=== PATIENT | female | born 1955 | race Caucasian/White ===

== ENCOUNTER 2016-07-13 05:51 | Observation (INO) ==
--- NOTE | 2016-07-13 06:07 | Emergency Department Note ---
Disposition Clinical Impression: COPD exacerbation, Weakness generalized Disposition: Admitted As Inpatient Condition: Good Referrals: Jose Elias Zazueta DO [Primary Care Provider] - Forms: Work/School Release, ED Satisfaction Letter General Adult HPI - General Chief complaint: ED General Medical Stated complaint: general illness Time Seen by Provider: 07/13/16 06:02 Source: patient, family, EMS Mode of arrival: EMS Limitations: no limitations Nursing Notes Reviewed: Yes Vital Signs Reviewed: Yes - History of Present Illness HPI Narrative: Patient reports that she has progressive weakness. She said some nausea with decreased oral intake over the course of about 2 weeks. She states she has held down just a little bit of Gatorade and water. She also has been having increased wheezing, cough and dyspnea. She is yellow to green phlegm without much improvement with her home aerosols. She also notes her has had a recent abdominal infection with colostomy and she has been feeling that she is having difficulty with some depression and stress. She got today to where she felt too weak to stand or walk and felt that she needed evaluated for her breathing, her weakness and dehydration. She denies fevers or chills. She denies abdominal pain or any actual vomiting other than some gagging with coughing. I ordered bloody or black stools. She relates that her urine has been decreased with her decreased oral intake. She feels dyspneic but denies chest pain. She is not having headache, visual changes or any localized numbness, tingling or weakness. She denies any type of fall or injury. Onset (ago): week(s) Consistency: Worsening Improves with: nothing Worsens with: movement Associated symptoms: Reports: cough, loss of appetite, malaise, nausea/vomiting , shortness of breath, weakness. Denies: confusion, chest pain, diaphoresis, fever/chills, headaches, rash, seizure, syncope - Related Data Home Medications Medication Instructions Recorded Confirmed HYDROcodone/Acet 10/325 mg [[place] 1 tab PO Q6HR PRN 07/13/16 07/13/16 10-325 mg] Triamterene/Hydrochlorothiazid 1 each PO DAILY 07/13/16 07/13/16 [Dyazide 37.5-25 Capsule] Allergies Allergy/AdvReac Type Severity Reaction Status Date / Time acetaminophen [From Percocet] Allergy Hives Verified 07/13/16 06:16 meloxicam [From Mobic] Allergy Hives Verified 07/13/16 06:16 Oxycodone [From Percocet] Allergy Hives Verified 07/13/16 06:16 All systems ED: reviewed and negative except as stated. Past Medical History - Past Medical History Attestation: Yes The following information was validated with the patient. Source: patient, nursing notes reviewed Medical history: Reports: asthma, hyperlipidemia, hypertension, other (Chronic low back pain, morbid obesity) Surgical history: Reports: orthopedic, other (Knee, rotator cuff) - Social History Smoking Status: Current every day smoker Alcohol use: Reports: none Drug use: Reports: none Physical Exam - General Limitations: no limitations General appearance: alert, anxious - Head Head exam: atraumatic, normocephalic, normal inspection - Eye Eye exam: Present: normal appearance, PERRL, EOMI. Absent: scleral icterus, conjunctival injection - ENT ENT exam: normal exam, normal oropharynx, mucous membranes moist - Neck Neck exam: Present: normal inspection, full ROM, trachea midline. Absent: tenderness, meningismus, lymphadenopathy - Chest Chest inspection: Present: normal inspection, symmetric chest wall rise - Respiratory Respiratory exam: Present: wheezes, prolonged expiratory phase. Absent: respiratory distress, accessory muscle use - Cardiovascular Cardiovascular exam: Present: regular rate, normal rhythm, tachycardia, normal heart sounds - Abdominal Exam Abdominal exam: Present: soft, Non-Tender, normal bowel sounds. Absent: tenderness, distention, guarding, rebound, rigidity - Extremities Exam Extremities exam: Present: normal inspection, full ROM, normal capillary refill. Absent: tenderness, pedal edema, calf tenderness - Expanded Lower Extremity Exam Neurovascular/Tendon exam: Present: normal capillary refill. Absent: motor deficit, sensory deficit, tendon deficit Gait: not tested/not observed - Back Exam Back exam: Present: normal inspection, full ROM. Absent: tenderness, CVA tenderness (R), CVA tenderness (L), vertebral tenderness - Neurological Exam Neurological exam: Present: alert, oriented X3 - Psychiatric Psychiatric exam: Present: normal affect, anxious - Skin Skin exam: Present: warm, dry, intact, normal color. Absent: cyanosis, diaphoresis, pallor Course Course Narrative: 729: All lab, EKG and imaging results were discussed with the patient and her brother. She states she still does not feel that she can produce a urine. She relates that she feels that she is too weak to get up around her house even with her walker or wheelchair. I have contacted Dr. Mantilla who is agreeable to have her in for an observation status to reassess how she responds to longer treatment. Verbal orders have been obtained for her observation. Patient remains in stable condition. Vital Signs Temperature 97.7 F 07/13/16 05:58 Pulse Rate 100 07/13/16 05:58 Respiratory Rate 20 07/13/16 05:58 Blood Pressure 130/83 07/13/16 05:58 O2 Sat by Pulse Oximetry 96 07/13/16 05:58 Temperature 97.7 F 07/13/16 05:58 Pulse Rate 100 07/13/16 05:58 Respiratory Rate 16 07/13/16 06:36 Blood Pressure 130/83 07/13/16 05:58 O2 Sat by Pulse Oximetry 95 07/13/16 06:36 Oxygen Delivery Oxygen Delivery Room Air Medical Decision Making - Medical Records Medical records reviewed: Yes I reviewed the patient's medical records. - Lab Data Lab results reviewed: Yes I reviewed the patient's lab results. Result diagrams: 07/13/16 06:35 07/13/16 06:35 Lab Results 07/13/16 07/13/16 07/13/16 Range/Units 06:35 06:35 06:35 WBC 4.8 (4.3-11.1) K/mcL RBC 3.67 L (3.82-4.97) M/mcL Hgb 13.9 (11.5-15.4) g/dL Hct 39.0 (35.3-44.9) % MCV 106.3 H (83.0-100.0) fL MCH 37.9 H (28.0-33.3) pg MCHC 35.6 H (31.6-35.5) g/dL RDW 11.0 L (11.5-14.5) % Plt Count 130 L (140-400) K/mcL MPV 9.7 (9.4-12.4) fL Immature Gran % 0.4 (0-4) % Seg Neutrophils % 67.6 % Lymphocytes % 21.5 % Monocytes % 9.9 % Eosinophils % 0.2 % Basophils % 0.4 % Neutrophils # 3.3 (1.6-8.9) K/mcL Lymphocytes # 1.0 (0.6-4.6) K/mcL Monocytes # 0.5 (0.0-1.3) K/mcL Eosinophils # 0.0 (0.0-0.6) K/mcL Basophils # 0.0 (0.0-0.2) K/mcL PT (9.4-12.1) Seconds INR APTT (26.0-36.0) Seconds VBG Lactic Acid (0.5-2.2) mmol/L Sodium 130 L (136-145) mEq/L Potassium 4.6 H (3.5-4.5) mEq/L Chloride 82 L (98-109) mEq/L Carbon Dioxide 25 (19-29) mEq/L BUN 15 (7-20) mg/dL Creatinine 0.90 (0.57-1.11) mg/dL Est GFR ( Amer) > 60 (> 60) Est GFR (Non-Af Amer) > 60 (> 60) BUN/Creatinine Ratio 17 (6-26) Glucose 86 (70-99) mg/dL Calculated Osmolality 270 L (280-300) Calcium 10.1 (8.6-10.8) mg/dL Total Bilirubin 1.2 (0.2-1.2) mg/dL Direct Bilirubin 0.8 H (0.0-0.5) mg/dL Indirect Bilirubin 0.4 (0.0-1.2) mg/dL AST 55 H (5-34) Units/L ALT 24 (0-55) Units/L Alkaline Phosphatase 106 (38-126) Units/L Troponin I 0.01 (0-0.03) ng/mL Serum Total Protein 7.3 (6.0-8.3) g/dL Albumin 3.7 (3.5-5.0) g/dL Globulin 3.6 H (2.4-3.5) g/dL Albumin/Globulin Ratio 1.0 L (1.1-2.2) 07/13/16 07/13/16 Range/Units 06:35 06:35 WBC (4.3-11.1) K/mcL RBC (3.82-4.97) M/mcL Hgb (11.5-15.4) g/dL Hct (35.3-44.9) % MCV (83.0-100.0) fL MCH (28.0-33.3) pg MCHC (31.6-35.5) g/dL RDW (11.5-14.5) % Plt Count (140-400) K/mcL MPV (9.4-12.4) fL Immature Gran % (0-4) % Seg Neutrophils % % Lymphocytes % % Monocytes % % Eosinophils % % Basophils % % Neutrophils # (1.6-8.9) K/mcL Lymphocytes # (0.6-4.6) K/mcL Monocytes # (0.0-1.3) K/mcL Eosinophils # (0.0-0.6) K/mcL Basophils # (0.0-0.2) K/mcL PT 11.4 (9.4-12.1) Seconds INR 1.1 APTT 30.1 (26.0-36.0) Seconds VBG Lactic Acid 1.3 (0.5-2.2) mmol/L Sodium (136-145) mEq/L Potassium (3.5-4.5) mEq/L Chloride (98-109) mEq/L Carbon Dioxide (19-29) mEq/L BUN (7-20) mg/dL Creatinine (0.57-1.11) mg/dL Est GFR ( Amer) (> 60) Est GFR (Non-Af Amer) (> 60) BUN/Creatinine Ratio (6-26) Glucose (70-99) mg/dL Calculated Osmolality (280-300) Calcium (8.6-10.8) mg/dL Total Bilirubin (0.2-1.2) mg/dL Direct Bilirubin (0.0-0.5) mg/dL Indirect Bilirubin (0.0-1.2) mg/dL AST (5-34) Units/L ALT (0-55) Units/L Alkaline Phosphatase (38-126) Units/L Troponin I (0-0.03) ng/mL Serum Total Protein (6.0-8.3) g/dL Albumin (3.5-5.0) g/dL Globulin (2.4-3.5) g/dL Albumin/Globulin Ratio (1.1-2.2) - Radiology Data Radiology results reviewed: Yes I reviewed the patient's radiology results. Single view chest x-ray is performed. This does not demonstrate evidence for infiltrate, effusion, pneumothorax, foreign body or heart failure. The cardiac silhouette is normal. There is mild hyperexpansion consistent with COPD. I do not see abnormality to the osseous structures of the chest. This is on my interpretation. Impressions Chest X-Ray 07/13/16 06:13 IMPRESSION: Negative portable chest. D/ / Luis Dominguez MD / Luis Dominguez MD Interpreting Provider: Luis Dominguez MD
[2016-07-13] MEDS ORDERED: 0.9 % Sodium Chloride 1,000 ML IVC ONE (06:14)
[2016-07-13] MEDS ORDERED: Ipratropium/Albuterol Neb 3 ML IH ONE (06:14)
[2016-07-13] MEDS ORDERED: Levofloxacin 750 MG/150 ML 750 MG/150 ML BAG IVPB ONE (06:14)
[2016-07-13 06:55] LABS: Basophils % 0.4 %; Eosinophils % 0.2 %; Hemoglobin 13.9 g/dL (11.5-15.4); Immature Granulocytes % 0.4 % (0-4); Lymphocytes % 21.5 %; Mean Corpuscular HGB Conc 35.6 g/dL (31.6-35.5); Mean Corpuscular Hemoglobin 37.9 pg (28.0-33.3); Mean Corpuscular Volume 106.3 fL (83.0-100.0); Mean Platelet Volume 9.7 fL (9.4-12.4); Monocytes # 0.5 K/mcL (0.0-1.3); Monocytes % 9.9 %; Neutrophils # 3.3 K/mcL (1.6-8.9); Platelet Count 130 K/mcL (140-400); Red Blood Count 3.67 M/mcL (3.82-4.97); Segmented Neutrophils % 67.6 %
[2016-07-13 07:05] LABS: INR 1.1; Prothrombin Time 11.4 Seconds (9.4-12.1)
[2016-07-13 07:08] LABS: Activated Partial Thrombo Time 30.1 Seconds (26.0-36.0)
[2016-07-13 07:16] LABS: Alanine Aminotransferase 24 Units/L (0-55); Albumin 3.7 g/dL (3.5-5.0); Alkaline Phosphatase 106 Units/L (38-126); Aspartate Amino Transferase 55 Units/L (5-34); BUN/Creatinine Ratio 17 (6-26); Bilirubin,Direct 0.8 mg/dL (0.0-0.5); Bilirubin,Indirect 0.4 mg/dL (0.0-1.2); Bilirubin,Total 1.2 mg/dL (0.2-1.2); Blood Urea Nitrogen 15 mg/dL (7-20); Calcium 10.1 mg/dL (8.6-10.8); Carbon Dioxide 25 mEq/L (19-29); Chloride 82 mEq/L (98-109); Globulin 3.6 g/dL (2.4-3.5); Glucose 86 mg/dL (70-99); Osmolality,Calculated 270 (280-300); Potassium 4.6 mEq/L (3.5-4.5); Sodium 130 mEq/L (136-145); Total Protein 7.3 g/dL (6.0-8.3); eGFR For African Americans > 60 (> 60); eGFR For Non-African Americans > 60 (> 60)
[2016-07-13 08:20] LABS: Bilirubin,Urine Moderate (Negative); Blood,Urine Moderate (Negative); Clarity,Urine Slightly Cloudy (Clear); Color,Urine Dark Yellow (Yellow); Glucose,Urine (UA) Normal (Normal); Ketones,Urine >=160 mg/dL (Negative); Leukocyte Esterase,Urine Small (Negative); Nitrite,Urine Negative (Negative); PH,Urine 5.5 pH Units (5.0-8.0); Protein,Urine Trace mg/dL (Neg-Trace); Urobilinogen,Urine Normal (Normal)
[2016-07-13] MEDS ORDERED: MOM Conc 10 ML UD.LIQ PO PRN (09:11)
[2016-07-13] MEDS ORDERED: Acetaminophen 325 MG TABLET PO PRN (09:11)
[2016-07-13] MEDS ORDERED: MethylPREDNISolone 40 MG/ML VIAL IVP SCH ×2 (09:11→16:00)
[2016-07-13] MEDS ORDERED: Naloxone 0.4 MG/ML INJ IVP PRN (09:11)
[2016-07-13] MEDS ORDERED: 0.9 % Sodium Chloride 1,000 ML IVC SCH (09:11)
[2016-07-13] MEDS ORDERED: Ondansetron 4 MG/2 ML VIAL IVP PRN (09:11)
[2016-07-13 09:43] LABS: Amorphous Sediment,Urine Few (Few); Bacteria,Urine Few per hpf (None-Few); Granular Casts,Urine Many per lpf (None Seen); Mucus,Urine Few (Few); Squamous Epithelial Cell,Urine Moderate per lpf (None-Few); Transitional Epi Cells,Urine Few per hpf (None-Few)
[2016-07-13] MEDS: *HR* HYDROcodone/Acet 10/325 mg TABLET PO PRN ×3 (10:34→18:44)
[2016-07-13] MEDS: Ipratropium/Albuterol Neb 3 ML IH SCH ×2 (12:40→17:06)
--- NOTE | 2016-07-13 16:23 | Electrocardiograph Report ---
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
--- NOTE | 2016-07-13 16:32 | Internal Med History&Physical ---
Date of Encounter: 07/13/16 Time of Encounter: 15:50 Assessment and Plan (1) Weakness generalized Current visit: Yes Status: Acute Will check TSH, magnesium level, and PT and OT evaluations for assessment of gait, balance, and strength (2) Macrocytosis Current visit: Yes Status: Acute Will order B12, folate, and TSH levels. (3) Paresthesia of foot, bilateral Current visit: Yes Status: Acute We will order labs as above. (4) Neuroforaminal stenosis of lumbar spine Current visit: Yes Status: Acute Continue Neurontin and [place] for pain control. Internal Medicine - H&P: HPI Chief complaint: Confusion and progressive weakness Admitted From: Home Plans for Post Hospital Care: Home History of present illness: Ms. Osullivan is a 60 year old female who came to emergency room after she awakened approximately 0330 and felt confused. She denies significant pain other than a headache that has been present for one week. She called the autocad's office and a squad brought her to emergency room. She was evaluated with minimal abnormality seen on lab work. She was admitted to [facility] for further evaluation and ongoing care needs. She states she has had progressive weakness over the past 2-3 years with more noticeable decline in the past week with decreased ability to stand and walk. She has had evaluation including LS spine MRI 03/27/2013 which showed multilevel degenerative changes with mild to moderate neural foraminal narrowing at various levels. An MRI of the cervical spine 01/06/2010 showed moderate to severe spondylosis at C5-6 and C6-7 with mild multilevel foraminal narrowing. There was no critical central spinal canal narrowing. She reports having EMG and nerve conduction studies done approximately 2 years ago without significant pathology seen. She has not seen a neurologist or diet aid. She has had multiple injections into her spine by pain management physicians. She has a diagnosis of scoliosis. She denies gout. She has had right rotator cuff injury with surgical repair several years ago. Past Med Surg Social Fam HX - Past Medical History Medical history: asthma, hyperlipidemia, hypertension, other Psychiatric history: no psych history - Past Surgical History Surgical History: orthopedic, other - Social History Smoking Status: Current every day smoker Smokeless Tobacco Status: No Alcohol use: none Drug use: none Internal Medicine - H&P: Meds Albuterol Sulfate [Ventolin Hfa] 18 gm IH PRN PRN 07/13/16 [History] Cholecalciferol (Vitamin D3) [Vitamin D] 2,000 unit PO DAILY 07/13/16 [History] Fluticasone/Salmeterol [Advair 500-50 Diskus] 1 each IH BID 07/13/16 [History] Gabapentin [Neurontin] 900 mg PO TID 07/13/16 [History] HYDROcodone/Acet 10/325 mg [[place] 10-325 mg] 1 tab PO Q6HR PRN 07/13/16 [History ] Ipratropium/Albuterol Neb [Duoneb] 3 ml IH BID PRN 07/13/16 [History] Metoprolol [Lopressor] 12.5 mg PO DAILY 07/13/16 [History] Triamterene/Hydrochlorothiazid [Dyazide 37.5-25 Capsule] 1 each PO DAILY [History] Allergies acetaminophen [From Percocet] Allergy (Verified 07/13/16 06:16) Hives meloxicam [From Mobic] Allergy (Verified 07/13/16 06:16) Hives Oxycodone [From Percocet] Allergy (Verified 07/13/16 06:16) Hives All Systems PM: A 10-system review of systems was performed and is negative for pertinent findings except as documented above in the HPI. Review of systems: Gen.: She states her weight has been stable the past 2 months Cardiovascular: She has a history of hypertension and has had leg edema in the past without specific diagnosis of heart failure. Denies NE DVT or pulmonary embolus. Respiratory: She has smoked since age 18 approximately 37 years up to 2 packs per day. She has a diagnosis of asthma but denies COPD and does not wear home oxygen. GI: She denies disorders of her liver gallbladder or exocrine pancreas : She has had hematuria in the past but has not had workup done. She denies other kidney or bladder disorders Neurologic: She denies large distribution strokes or seizures. She complains of numbness in her feet and legs. Endocrine: She has diabetes or known thyroid disease but does have hyperlipidemia with significantly elevated HDL levels. She admits to drinking bourbon on a daily basis in past years but states she has cut down dramatically now. Hematology/oncology: She denies blood disorders cancers or anemia Psychiatric: She denies anxiety depression or other mental health issues Musk skeletal: As per history of present illness - Constitutional Vitals: Temp Pulse Resp BP Pulse Ox 97.5 F L 86 16 124/83 96 07/13/16 08:53 07/13/16 08:53 07/13/16 12:44 07/13/16 08:53 07/13/16 12:44 Exam: Gen.: She is a well-developed obese female who is lying in bed and appears in minimal distress at present time. HEENT: Head is atraumatic and normocephalic. Eyes: EOMI. There is no scleral icterus. Mouth: Mucosa is moist. Neck: Supple and nontender. There is no thyromegaly or adenopathy noted. Heart: Regular without murmurs gallops or ectopics. Lungs: She has diminished breath sounds diffusely. No wheezes or crackles are heard. Abdomen: She has a large abdomen. It is nontender to palpation. Extremities: There is no cyanosis edema or clubbing noted. Dorsalis pedis and posterior tibial pulses are trace palpable bilaterally. Neurologic: Mental status: She is talkative and a good historian. Cranial nerves: Smile is symmetric. Forehead wrinkles bilaterally. Tongue protrudes midline. EOMI. Motor: There is no pronator drift. She could not elevate her right arm because of previous rotator cuff injury. Cerebellar: Finger to nose is intact bilaterally. Skin: Warm and dry. She has telangiectasias of her malar areas bilaterally more on the left than the right. Internal Med - H&P Results - Labs CBC & Chem 7: 07/13/16 06:35 07/13/16 06:35 Labs: Urine 07/13/16 Range/Units 08:10 Urine Color Dark Yellow (Yellow) Urine Clarity Slightly Cloudy A (Clear) Urine pH 5.5 (5.0-8.0) pH Units Ur Specific [place] 1.020 (1.010-1.025) Urine Protein Trace (Neg-Trace) mg/dL Urine Glucose (UA) Normal (Normal) mg/dL
[2016-07-13] MEDS: Albuterol 2.5 MG/3 ML NEBULIZER IH PRN (18:14)
[2016-07-14] MEDS: *HR* HYDROcodone/Acet 10/325 mg TABLET PO PRN ×5 (00:05→21:05)
[2016-07-14] MEDS: Albuterol 2.5 MG/3 ML NEBULIZER IH PRN ×2 (00:51→22:18)
[2016-07-14 05:44] LABS: Hemoglobin 12.3 g/dL (11.5-15.4); Lymphocytes # 0.6 K/mcL (0.6-4.6); Lymphocytes % 13.5 %; Mean Corpuscular HGB Conc 35.1 g/dL (31.6-35.5); Mean Platelet Volume 10.1 fL (9.4-12.4); Monocytes # 0.2 K/mcL (0.0-1.3); Monocytes % 3.7 %; Platelet Count 101 K/mcL (140-400); Red Blood Count 3.24 M/mcL (3.82-4.97); Segmented Neutrophils % 81.8 %
[2016-07-14] MEDS ORDERED: Levofloxacin 750 MG/150 ML 750 MG/150 ML BAG IVPB SCH (06:00)
[2016-07-14 06:06] LABS: Neutrophils # 3.4 K/mcL (1.6-8.9)
[2016-07-14 06:24] LABS: Thyroid Stimulating Hormone 0.412 mcIU/mL (0.350-4.840)
--- NOTE | 2016-07-14 13:59 | Internal Med Progress Note ---
Date of Encounter: 07/14/16 Time of Encounter: 13:50 - Assessment and plan (1) Weakness generalized Current Visit: Yes Status: Acute Assessment and plan: July 14. Await PT evaluation. Anticipate discharge home tomorrow. (2) Macrocytosis Current Visit: Yes Status: Acute Assessment and plan: July 14. B12 and folate levels are pending. TSH was normal at 0.412. (3) Paresthesia of foot, bilateral Current Visit: Yes Status: Acute Assessment and plan: July 14. B12 level is pending. (4) Neuroforaminal stenosis of lumbar spine Current Visit: Yes Status: Acute Assessment and plan: July 14. Continue Neurontin and [place] (5) Hyperuricemia Current Visit: Yes Status: Acute Assessment and plan: July 14. We will start allopurinol - Subjective Interval history: July 14. She has no new complaints and feels better. He has not had PT evaluation yet. Reviewed the OT evaluation. - Constitutional Vitals: Temp Pulse Resp BP Pulse Ox 98.1 F 96 18 112/78 96 07/14/16 11:20 07/14/16 11:20 07/14/16 11:20 07/14/16 11:20 07/14/16 11:20 Exam: She is resting comfortably in bed and appears in no acute distress. Her affect is bright and cheerful. I reviewed her CT scan reports, labs, and medications. Room air oximetry showed saturation 96% at rest. Internal Medicine: Result - Labs CBC & Chem 7: 07/14/16 04:37 07/13/16 06:35 Labs: Short CBC 07/14/16 Range/Units 04:37 WBC 4.1 L (4.3-11.1) K/mcL Hgb 12.3 D (11.5-15.4) g/dL Hct 35.0 L (35.3-44.9) % Plt Count 101 L (140-400) K/mcL Neutrophils # 3.4 (1.6-8.9) K/mcL - ABG Interpretation ABG results: PT/INR, D-dimer PT 11.4 Seconds (9.4-12.1) 07/13/16 06:35 - Impressions Impressions Abdomen/Pelvis CT 07/13/16 16:44 IMPRESSION: 1. No acute intra-abdominal or intrapelvic process. 2. Cholelithiasis. 3. Colonic diverticulosis without evidence of diverticulitis. 4. Normal appendix. D/ / Wilton Crump MD / Wilton Crump MD Interpreting Provider: Wilton Crump MD Chest CT 07/13/16 16:44 IMPRESSION: No evidence of pulmonary malignancy or acute pulmonary disease. Coronary artery disease. D/ / Solo Gonzalez MD / Solo Gonzalez MD Interpreting Provider: Solo Gonzalez MD Head CT 07/13/16 16:44 IMPRESSION: No acute intracranial abnormality. Findings compatible with age related atrophy and mild likely chronic small vessel ischemic change. D/ / Clemente Gallegos MD / Clemente Gallegos MD Interpreting Provider: Clemente Gallegos MD - VTE Documentation of Mechanical Device: Graduated compression elastic hosiery Consult Discharge Plan - Plan Referrals: Jose Elias Zazueta DO [Primary Care Provider] - 1 week
[2016-07-14 14:12] LABS: Folate 3.8 ng/mL (7.0-31.4)
[2016-07-15] MEDS: *HR* HYDROcodone/Acet 10/325 mg TABLET PO PRN ×3 (05:05→13:20)
[2016-07-15 06:34] LABS: Hematocrit 34.3 % (35.3-44.9); Lymphocytes # 1.2 K/mcL (0.6-4.6); Lymphocytes % 22.8 %; Mean Corpuscular Hemoglobin 37.6 pg (28.0-33.3); Mean Corpuscular Volume 107.5 fL (83.0-100.0); Mean Platelet Volume 9.3 fL (9.4-12.4); Monocytes # 0.4 K/mcL (0.0-1.3); Monocytes % 7.3 %; Neutrophils # 3.5 K/mcL (1.6-8.9); Red Blood Count 3.19 M/mcL (3.82-4.97); Red Cell Distribution Width 11.1 % (11.5-14.5); Segmented Neutrophils % 68.9 %
[2016-07-15 06:49] LABS: BUN/Creatinine Ratio 20 (6-26); Blood Urea Nitrogen 17 mg/dL (7-20); Calcium 9.7 mg/dL (8.6-10.8); Carbon Dioxide 28 mEq/L (19-29); Chloride 93 mEq/L (98-109); Glucose 99 mg/dL (70-99); Magnesium 1.8 mg/dL (1.6-2.6); Osmolality,Calculated 284 (280-300); Platelet Count 92 K/mcL (140-400); Potassium 3.4 mEq/L (3.5-4.5); Sodium 136 mEq/L (136-145); eGFR For African Americans > 60 (> 60); eGFR For Non-African Americans > 60 (> 60)
--- NOTE | 2016-07-15 12:46 | Discharge Summary ---
Date of Encounter: 07/15/16 Time of Encounter: 12:25 - Discharge Diagnosis (1) Weakness generalized Priority: Primary Status: Acute (2) Macrocytosis Priority: Secondary Status: Acute (3) Paresthesia of foot, bilateral Priority: Secondary Status: Chronic (4) Neuroforaminal stenosis of lumbar spine Priority: Secondary Status: Chronic (5) Hyperuricemia Priority: Secondary Status: Acute - Discharge Medications Prescriptions: Allopurinol [Zyloprim 100 MG] 200 mg PO DAILY #60 tablet Folic Acid 1 mg PO DAILY #30 tablet Home Medications: Albuterol Sulfate [Ventolin Hfa] 18 gm IH PRN PRN 07/13/16 [History] Cholecalciferol (Vitamin D3) [Vitamin D3] 2,000 unit PO DAILY 07/13/16 [History] Fluticasone/Salmeterol [Advair 500-50 Diskus] 1 each IH BID 07/13/16 [History] Gabapentin [Neurontin] 900 mg PO TID 07/13/16 [History] HYDROcodone/Acet 10/325 mg [[place] 10-325 mg] 1 tab PO Q6HR PRN 07/13/16 [History ] Ipratropium/Albuterol Neb [Duoneb] 3 ml IH BID PRN 07/13/16 [History] Allopurinol [Zyloprim 100 MG] 200 mg PO DAILY #60 tablet 07/15/16 [Rx] Folic Acid 1 mg PO DAILY #30 tablet 07/15/16 [Rx] Allergies/Adverse Reactions: Allergies meloxicam [From Mobic] Allergy (Verified 07/13/16 06:16) Hives Oxycodone [From Percocet] Allergy (Verified 07/13/16 06:16) Hives Procedures/tests Complete & Pending: Procedures Performed prior 72 hours Category Date Time Status CT abd pelvis wo no iv no oral [CT] Routine Cat Scan 07/13/16 16:[address] chest wo con [CT] Routine Cat Scan 07/13/16 16:[address] head/brain wo con [CT] Routine Cat Scan 07/13/16 16:44 Completed Date of admission: 07/13/16 07:49 Primary care physician: Jose Elias Zazueta, Consults: 07/13/16 09:57 Consult to Nutrition [CONS] Routine Comment: Consulting Provider: NUTRITION Reason for Dietary Consult: MST Score 07/13/16 16:48 Consult to Occupational Therapy [CONS] Routine Comment: Evaluate, develop and implement POC Consult to Physical Therapy [CONS] Routine Comment: Evaluate, develop and implement POC - Patient Status Disposition: Home Health Service Condition: Good Overall status at discharge: patient is progressing back to baseline - Discharge Instructions Follow Up With: Jose Elias Zazueta DO [Primary Care Provider] - 1 week Additional Instructions: Squad to transport home - Diet and Activity Activity: resume usual activities as tolerated Diet: regular diet Hospital course: Ms. Osullivan is a 60 year old female who came to emergency room after she awakened approximately 0330 and felt confused. She denies significant pain other than a headache that has been present for one week. She called the ship worker's office and a squad brought her to emergency room. She was evaluated with minimal abnormality seen on lab work. She was admitted to [facility] for further evaluation and ongoing care needs. Initial orders were written by the emergency physician. I saw her on July 13 and performed the history and physical. Orders were written for PT and OT evaluations. The OT evaluation was completed but physical therapy evaluation was not done prior to discharge. I will order home health PT and OT to further evaluate her in the home environment. Macrocytosis workup was done with folate level returning low at 3.8. She will be started on supplemental folic acid. I encouraged her to completely discontinue the use of alcohol. Her B12 and TSH levels were normal. Uric acid level returned elevated at 9.0. I told her this could be due to the use of alcohol and HCTZ. She was started on allopurinol and this will be continued at discharge. She will remain off her blood pressure medication and discontinue alcohol use. Her blood pressure remained stable off all antihypertensive medications during her hospital stay. On July 15 she felt stable for discharge home. She will have home health services ordered. She will follow with Dr. Zazueta within 1 week. - Time Spent with Patient Total time spent providing and/or coordinating discharge services: - Constitutional Vitals: Temp Pulse Resp BP Pulse Ox 98.1 F 95 16 111/72 94 07/15/16 07:00 07/15/16 07:00 07/15/16 07:00 07/15/16 07:00 07/15/16 07:00 - VTE Documentation of Mechanical Device: Graduated compression elastic hosiery
--- NOTE | 2016-07-15 12:53 | Physician Discharge Referral ---
Home Health/Hosp Referral Info Transfer to: Home Health Attending Provider: Jose Rafael Provider in Charge Post Discharge: PCP (Jose Elias Zazueta D.O.) - Diagnosis (1) Weakness generalized Priority: Primary Status: Acute (2) Macrocytosis Priority: Secondary Status: Acute (3) Paresthesia of foot, bilateral Priority: Secondary Status: Chronic (4) Neuroforaminal stenosis of lumbar spine Priority: Secondary Status: Chronic (5) Hyperuricemia Priority: Secondary Status: Acute (6) Folate deficiency Priority: Secondary Status: Acute - Respiratory Orders Smoking Cessation: Smoking cessation has been advised. For more information, call the [place] Tobacco Quit Line at 3-313-OXST-NOW. - Diet/Nutrition Diet/Nutrition Orders: Regular - Activity Activity Orders: Walker - Services Needed Following services are medically necessary services: Nursing, Home Health Aide, Physical Therapy, Occupational Therapy - Transfer Medications Prescriptions: Allopurinol [Zyloprim 100 MG] 200 mg PO DAILY #60 tablet Folic Acid 1 mg PO DAILY #30 tablet Home Medications: Albuterol Sulfate [Ventolin Hfa] 18 gm IH PRN PRN 07/13/16 [History] Cholecalciferol (Vitamin D3) [Vitamin D3] 2,000 unit PO DAILY 07/13/16 [History] Fluticasone/Salmeterol [Advair 500-50 Diskus] 1 each IH BID 07/13/16 [History] Gabapentin [Neurontin] 900 mg PO TID 07/13/16 [History] HYDROcodone/Acet 10/325 mg [Protem 10-325 mg] 1 tab PO Q6HR PRN 07/13/16 [History ] Ipratropium/Albuterol Neb [Duoneb] 3 ml IH BID PRN 07/13/16 [History] Allopurinol [Zyloprim 100 MG] 200 mg PO DAILY #60 tablet 07/15/16 [Rx] Folic Acid 1 mg PO DAILY #30 tablet 07/15/16 [Rx] Allergies/Adverse Reactions: Allergies meloxicam [From Mobic] Allergy (Verified 07/13/16 06:16) Hives Oxycodone [From Percocet] Allergy (Verified 07/13/16 06:16) Hives Certification: Further, I certify that my clinical findings support that this patient is homebound (i.e. absences from home require considerable and taxing effort and are for medical reasons or confucianist services or infrequently or short duration when for other reasons) because: Homebound Reason: Leaving home requires considerable and taxing effort due to condition (Patient unable to walk significant distances) Attestation: My signature below is to certify that this patient is under my care and that I, or nurse practitioner, or a physician's assistant store manager sales working with me, has a face-to -face encounter with this patient.
[2016-07-17 08:28] VITALS: BP 120/82
== END 2016-07-15 15:51 | disposition home health service (06) ==
LOC: EMEROOPIK 05:51 → INPPIK 05:51
PROVIDERS: ADMIT Internal Medicine; ATTEND Internal Medicine

== ENCOUNTER 2016-09-09 12:43 | Observation (INO) ==
[2016-09-09] MEDS ORDERED: 0.9 % Sodium Chloride 1,000 ML IVC ONE (13:01)
[2016-09-09 13:27] LABS: Basophils % 0.3 %; Eosinophils % 0.3 %; Hematocrit 32.4 % (35.3-44.9); Hemoglobin 11.5 g/dL (11.5-15.4); Lymphocytes # 1.2 K/mcL (0.6-4.6); Lymphocytes % 19.5 %; Mean Corpuscular HGB Conc 35.5 g/dL (31.6-35.5); Mean Corpuscular Hemoglobin 38.9 pg (28.0-33.3); Mean Corpuscular Volume 109.5 fL (83.0-100.0); Mean Platelet Volume 9.1 fL (9.4-12.4); Monocytes # 0.7 K/mcL (0.0-1.3); Monocytes % 11.4 %; Neutrophils # 4.2 K/mcL (1.6-8.9); Platelet Count 217 K/mcL (140-400); Red Blood Count 2.96 M/mcL (3.82-4.97); Red Cell Distribution Width 13.1 % (11.5-14.5); Segmented Neutrophils % 67.5 %
[2016-09-09 13:34] LABS: INR 1.1; Prothrombin Time 11.8 Seconds (9.4-12.1)
[2016-09-09 13:43] LABS: BUN/Creatinine Ratio 15 (6-26); Blood Urea Nitrogen 10 mg/dL (7-20); Calcium 9.6 mg/dL (8.6-10.8); Carbon Dioxide 21 mEq/L (19-29); Chloride 94 mEq/L (98-109); Glucose 94 mg/dL (70-99); Osmolality,Calculated 277 (280-300); Potassium 4.6 mEq/L (3.5-4.5); Sodium 134 mEq/L (136-145); eGFR For African Americans > 60 (> 60); eGFR For Non-African Americans > 60 (> 60)
[2016-09-09 13:47] LABS: Albumin 2.9 g/dL (3.5-5.0); Albumin/Globulin Ratio 0.8 (1.1-2.2); Bilirubin,Direct 0.6 mg/dL (0.0-0.5); Bilirubin,Indirect 0.5 mg/dL (0.0-1.2); Bilirubin,Total 1.1 mg/dL (0.2-1.2); Globulin 3.7 g/dL (2.4-3.5); Total Protein 6.6 g/dL (6.0-8.3)
--- NOTE | 2016-09-09 14:03 | Emergency Department Note ---
Disposition Clinical Impression: Inability to ambulate due to multiple joints, Dehydration, Tachycardia Disposition: Admitted As Inpatient Condition: Good Referrals: Jose Elias Zazueta DO [Primary Care Provider] - General Adult HPI - General Chief complaint: ED General Medical Stated complaint: LEGS ARE WEAK AND FALLING Source: patient, EMS Limitations: physical limitation - History of Present Illness HPI Narrative: Patient presents to the emergency department for evaluation of decreased ability to ambulate. She reports increasing neuropathy of bilateral lower extremities are the past 8 months. She states that she is not having frequent falls secondary to weakness of bilateral lower extremity's. Denies asymmetry or focal neurologic deficits. Denies headache visual changes confusion speech changes motor or sensory deficits. She denies chest pain shortness of breath nausea vomiting or diaphoresis. She denies any other associated symptoms or complaints. She was admitted for something similar to this in July. She had a head CT at that time which was negative. She states that this time her has recently suffered from an illness and is no longer to care for her. Pain Scale: 4 - Related Data Home Medications Medication Instructions Recorded Confirmed Albuterol Sulfate [Ventolin Hfa] 18 gm IH PRN PRN 07/13/16 09/09/16 Cholecalciferol (Vitamin D3) 2,000 unit PO DAILY 07/13/16 09/09/16 [Vitamin D3] Fluticasone/Salmeterol [Advair 1 each IH BID 07/13/16 09/09/16 500-50 Diskus] Gabapentin [Neurontin] 900 mg PO TID 07/13/16 09/09/16 HYDROcodone/Acet 10/325 mg [[place] 1 tab PO Q6HR PRN 07/13/16 09/09/16 10-325 mg] Ipratropium/Albuterol Neb [Duoneb] 3 ml IH BID PRN 07/13/16 09/09/16 Metoprolol [Lopressor] 12.5 mg PO DAILY 09/09/16 09/09/16 Triamterene/HCTZ 37.5/25mg 1 each PO DAILY 09/09/16 09/09/16 [Dyazide] Allergies Allergy/AdvReac Type Severity Reaction Status Date / Time meloxicam [From Mobic] Allergy Hives Verified 07/13/16 06:16 Oxycodone [From Percocet] Allergy Hives Verified 07/13/16 06:16 Constitutional: Denies: fever, chills, weakness Eyes: Denies: eye pain, eye discharge ENT ED: Denies: ear pain, throat pain, dental pain, congestion Cardiovascular: Denies: chest pain, palpitations, dyspnea on exertion, orthopnea Gastrointestinal: Denies: abdominal pain, nausea, vomiting, diarrhea Genitourinary: Denies: urgency, dysuria, frequency Musculoskeletal: Reports: as per HPI. Denies: back pain, neck pain Integumentary: Denies: rash (Patient does have a skin avulsion left anterior lower extremity from a fall several days ago.) Neurological: Reports: weakness. Denies: headache, vertigo Psychiatric: Denies: anxiety, depression Endocrine: Denies: fatigue Hematological/Lymphatic: Denies: easy bleeding Allergic/Immunologic: Denies: facial swelling Past Medical History - Past Medical History Medical history: Reports: asthma, hyperlipidemia, hypertension, other Surgical history: Reports: orthopedic, other Psychiatric history: Reports: no psych history PATTERNMAKER METAL history: Reports: no PATTERNMAKER METAL history - Social History Smoking Status: Current every day smoker Smokeless Tobacco Status: No Alcohol use: Reports: none Drug use: Reports: none Physical Exam - General Limitations: physical limitation General appearance: alert, in no apparent distress - Head Head exam: atraumatic - Eye Eye exam: Present: PERRL, EOMI - ENT ENT exam: normal exam, mucous membranes moist, TM's normal bilaterally - Neck Neck exam: Present: normal inspection, full ROM - Respiratory Respiratory exam: Present: normal lung sounds bilaterally - Cardiovascular Cardiovascular exam: Present: tachycardia, normal heart sounds - Abdominal Exam Abdominal exam: Present: soft, Non-Tender, normal bowel sounds - Extremities Exam Extremities exam: Present: full ROM, normal capillary refill. Absent: pedal edema, calf tenderness - Expanded Lower Extremity Exam Neurovascular/Tendon exam: Present: normal capillary refill. Absent: pulse deficit, motor deficit - Back Exam Back exam: Present: normal inspection. Absent: vertebral tenderness - Neurological Exam Neurological exam: Present: alert, oriented X3, CN II-XII intact. Absent: motor sensory deficit - Psychiatric Psychiatric exam: Present: normal affect - Skin Skin exam: Present: warm, dry, intact (Skin avulsion left anterior lower tib- fib. No signs of secondary sialitis.) Course Vital Signs Temperature 99.1 F 09/09/16 12:49 Pulse Rate 137 06/04/17 12:49 Respiratory Rate 18 09/09/16 12:49 O2 Sat by Pulse Oximetry 99 09/09/16 12:49 Temperature 99.1 F 09/09/16 13:01 Pulse Rate 111 09/09/16 15:26 Respiratory Rate 16 09/09/16 15:26 Blood Pressure 121/93 09/09/16 15:26 O2 Sat by Pulse Oximetry 98 09/09/16 15:26 Oxygen Delivery Oxygen Delivery Room Air Medical Decision Making - MDM Narrative Medical decision making narrative: Heart rate is currently down to 112 with IV fluids. She subjectively feels improved. There is no evidence of acute neurologic event. She is currently unable to care for herself at home secondary to her neuropathy. She will be admitted to the hospitalist service for ongoing evaluation and treatment. - Lab Data Lab results reviewed: Yes I reviewed the patient's lab results. Result diagrams: 09/09/16 13:19 09/09/16 13:19 Lab Results 09/09/16 09/09/16 09/09/16 Range/Units 13:19 13:19 13:19 WBC (4.3-11.1) K/mcL RBC (3.82-4.97) M/mcL Hgb (11.5-15.4) g/dL Hct (35.3-44.9) % MCV (83.0-100.0) fL MCH (28.0-33.3) pg MCHC (31.6-35.5) g/dL RDW (11.5-14.5) % Plt Count (140-400) K/mcL MPV (9.4-12.4) fL Immature Gran % (0-4) % Seg Neutrophils % % Lymphocytes % % Monocytes % % Eosinophils % % Basophils % % Neutrophils # (1.6-8.9) K/mcL Lymphocytes # (0.6-4.6) K/mcL Monocytes # (0.0-1.3) K/mcL Eosinophils # (0.0-0.6) K/mcL Basophils # (0.0-0.2) K/mcL PT 11.8 (9.4-12.1) Seconds INR 1.1 APTT 30.0 (26.0-36.0) Seconds Sodium (136-145) mEq/L Potassium (3.5-4.5) mEq/L Chloride (98-109) mEq/L Carbon Dioxide (19-29) mEq/L BUN (7-20) mg/dL Creatinine (0.57-1.11) mg/dL Est GFR ( Amer) (> 60) Est GFR (Non-Af Amer) (> 60) BUN/Creatinine Ratio (6-26) Glucose (70-99) mg/dL Calculated Osmolality (280-300) Calcium (8.6-10.8) mg/dL Total Bilirubin 1.1 (0.2-1.2) mg/dL Direct Bilirubin 0.6 H (0.0-0.5) mg/dL Indirect Bilirubin 0.5 (0.0-1.2) mg/dL AST 52 H (5-34) Units/L ALT 29 (0-55) Units/L Alkaline Phosphatase 97 (38-126) Units/L Creatine Kinase (29-168) Units/L Troponin I (0-0.03) ng/mL Serum Total Protein 6.6 (6.0-8.3) g/dL Albumin 2.9 L (3.5-5.0) g/dL Globulin 3.7 H (2.4-3.5) g/dL Albumin/Globulin Ratio 0.8 L (1.1-2.2) Lipase 8 (8-78) Units/L Urine Color (Yellow) Urine Clarity (Clear) Urine pH (5.0-8.0) pH Units Ur Specific [place] (1.010-1.025) Urine Protein (Neg-Trace) mg/dL Urine Glucose (UA) (Normal) mg/dL Urine Ketones (Negative) mg/dL Urine Blood (Negative) Urine Nitrite (Negative) Urine Bilirubin (Negative) Urine Urobilinogen (Normal) mg/dL Ur Leukocyte Esterase (Negative) Urine Microscopic WBC (0-3) per hpf Ur Squamous Epith Cells (None-Few) per lpf Hyaline Casts (None-Few) per lpf Urine Mucus (Few) Ur Culture Indicated? (NO) 09/09/16 09/09/16 09/09/16 Range/Units 13:19 13:19 13:19 WBC 6.2 (4.3-11.1) K/mcL RBC 2.96 L (3.82-4.97) M/mcL Hgb 11.5 (11.5-15.4) g/dL Hct 32.4 L (35.3-44.9) % MCV 109.5 H (83.0-100.0) fL MCH 38.9 H (28.0-33.3) pg MCHC 35.5 (31.6-35.5) g/dL RDW 13.1 (11.5-14.5) % Plt Count 217 (140-400) K/mcL MPV 9.1 L (9.4-12.4) fL Immature Gran % 1.0 (0-4) % Seg Neutrophils % 67.5 % Lymphocytes % 19.5 % Monocytes % 11.4 % Eosinophils % 0.3 % Basophils % 0.3 % Neutrophils # 4.2 (1.6-8.9) K/mcL Lymphocytes # 1.2 (0.6-4.6) K/mcL Monocytes # 0.7 (0.0-1.3) K/mcL Eosinophils # 0.0 (0.0-0.6) K/mcL Basophils # 0.0 (0.0-0.2) K/mcL PT (9.4-12.1) Seconds INR APTT (26.0-36.0) Seconds Sodium 134 L (136-145) mEq/L Potassium 4.6 H (3.5-4.5) mEq/L Chloride 94 L (98-109) mEq/L Carbon Dioxide 21 (19-29) mEq/L BUN 10 (7-20) mg/dL Creatinine 0.67 (0.57-1.11) mg/dL Est GFR ( Amer) > 60 (> 60) Est GFR (Non-Af Amer) > 60 (> 60) BUN/Creatinine Ratio 15 (6-26) Glucose 94 (70-99) mg/dL Calculated Osmolality 277 L (280-300) Calcium 9.6 (8.6-10.8) mg/dL Total Bilirubin (0.2-1.2) mg/dL Direct Bilirubin (0.0-0.5) mg/dL Indirect Bilirubin (0.0-1.2) mg/dL AST (5-34) Units/L ALT (0-55) Units/L Alkaline Phosphatase (38-126) Units/L Creatine Kinase (29-168) Units/L Troponin I 0.01 (0-0.03) ng/mL Serum Total Protein (6.0-8.3) g/dL Albumin (3.5-5.0) g/dL Globulin (2.4-3.5) g/dL Albumin/Globulin Ratio (1.1-2.2) Lipase (8-78) Units/L Urine Color (Yellow) Urine Clarity (Clear) Urine pH (5.0-8.0) pH Units Ur Specific [place] (1.010-1.025) Urine Protein (Neg-Trace) mg/dL Urine Glucose (UA) (Normal) mg/dL Urine Ketones (Negative) mg/dL Urine Blood (Negative) Urine Nitrite (Negative) Urine Bilirubin (Negative) Urine Urobilinogen (Normal) mg/dL Ur Leukocyte Esterase (Negative) Urine Microscopic WBC (0-3) per hpf Ur Squamous Epith Cells (None-Few) per lpf Hyaline Casts (None-Few) per lpf Urine Mucus (Few) Ur Culture Indicated? (NO) 09/09/16 09/09/16 Range/Units 13:19 15:10 WBC (4.3-11.1) K/mcL RBC (3.82-4.97) M/mcL Hgb (11.5-15.4) g/dL Hct (35.3-44.9) % MCV (83.0-100.0) fL MCH (28.0-33.3) pg MCHC (31.6-35.5) g/dL RDW (11.5-14.5) % Plt Count (140-400) K/mcL MPV (9.4-12.4) fL Immature Gran % (0-4) % Seg Neutrophils % % Lymphocytes % % Monocytes % % Eosinophils % % Basophils % % Neutrophils # (1.6-8.9) K/mcL Lymphocytes # (0.6-4.6) K/mcL Monocytes # (0.0-1.3) K/mcL Eosinophils # (0.0-0.6) K/mcL Basophils # (0.0-0.2) K/mcL PT (9.4-12.1) Seconds INR APTT (26.0-36.0) Seconds Sodium (136-145) mEq/L Potassium (3.5-4.5) mEq/L Chloride (98-109) mEq/L Carbon Dioxide (19-29) mEq/L BUN (7-20) mg/dL Creatinine (0.57-1.11) mg/dL Est GFR ( Amer) (> 60) Est GFR (Non-Af Amer) (> 60) BUN/Creatinine Ratio (6-26) Glucose (70-99) mg/dL Calculated Osmolality (280-300) Calcium (8.6-10.8) mg/dL Total Bilirubin (0.2-1.2) mg/dL Direct Bilirubin (0.0-0.5) mg/dL Indirect Bilirubin (0.0-1.2) mg/dL AST (5-34) Units/L ALT (0-55) Units/L Alkaline Phosphatase (38-126) Units/L Creatine Kinase 99 (29-168) Units/L Troponin I (0-0.03) ng/mL Serum Total Protein (6.0-8.3) g/dL Albumin (3.5-5.0) g/dL Globulin (2.4-3.5) g/dL Albumin/Globulin Ratio (1.1-2.2) Lipase (8-78) Units/L Urine Color [place] A (Yellow) Urine Clarity Slightly Cloudy A (Clear) Urine pH 5.0 (5.0-8.0) pH Units Ur Specific [place] >= 1.030 H (1.010-1.025) Urine Protein 30 H (Neg-Trace) mg/dL Urine Glucose (UA) Normal (Normal) mg/dL Urine Ketones 15 H (Negative) mg/dL Urine Blood Negative (Negative) Urine Nitrite Negative (Negative) Urine Bilirubin Large H (Negative) Urine Urobilinogen Normal (Normal) mg/dL Ur Leukocyte Esterase Negative (Negative) Urine Microscopic WBC 0-3 (0-3) per hpf Ur Squamous Epith Cells Few (None-Few) per lpf Hyaline Casts Few (None-Few) per lpf Urine Mucus Many H (Few) Ur Culture Indicated? NO (NO) ITS Impressions Chest X-Ray 09/09/16 12:58 IMPRESSION: Stable portable study. D/ / Pat Magaña Cha, MD / Pat Magaña Cha, MD Interpreting Provider: Pat Magaña Cha, MD Impressions Chest X-Ray 09/09/16 12:58 IMPRESSION: Stable portable study. D/ / Pat Magaña Cha, MD / Pat Magaña Cha, MD Interpreting Provider: Pat Magaña Cha, MD Chest CTA 09/09/16 14:52 IMPRESSION: 1. No evidence of pulmonary embolism or other acute abnormality in the chest. 2. Right middle lobe scarring versus atelectasis. D/ / Kaveh Brice MD / Kvaeh Brice MD Interpreting Provider: Kaveh Brice MD - Radiology Data Radiology results reviewed: Yes I reviewed the patient's radiology results. - EKG Data EKG #1 EKG shows normal: sinus rhythm Rate: tachycardia (Sinus tachycardia with rate 124. Left axis deviation. Nonspecific changes without evidence of acute ST or T-wave segment changes.)
[2016-09-09 15:17] LABS: Bilirubin,Urine Large (Negative); Blood,Urine Negative (Negative); Clarity,Urine Slightly Cloudy (Clear); Color,Urine Amber (Yellow); Glucose,Urine (UA) Normal (Normal); Ketones,Urine 15 mg/dL (Negative); Leukocyte Esterase,Urine Negative (Negative); Nitrite,Urine Negative (Negative); Protein,Urine 30 mg/dL (Neg-Trace); Specific Gravity,Urine >= 1.030 (1.010-1.025); Urobilinogen,Urine Normal (Normal)
[2016-09-09 15:33] LABS: Hyaline Casts,Urine Few per lpf (None-Few); Mucus,Urine Many (Few); Squamous Epithelial Cell,Urine Few per lpf (None-Few); WBC,Urine 0-3 per hpf (0-3)
[2016-09-09] MEDS ORDERED: Naloxone 0.4 MG/ML INJ IVP PRN (16:39)
[2016-09-09] MEDS: 0.9 % Sodium Chloride 1,000 ML IVC SCH (17:45)
[2016-09-09] MEDS ORDERED: Ipratropium/Albuterol Neb 3 ML IH PRN (17:45)
[2016-09-09] MEDS ORDERED: Gabapentin 300 MG CAPSULE PO PRN (17:46)
[2016-09-09] MEDS: *HR* HYDROcodone/Acet 10/325 mg TABLET PO PRN (19:33)
[2016-09-09] MEDS: Budesonide/Formoterol 160/4.5 MDI IH SCH (22:17)
[2016-09-10] MEDS: *HR* HYDROcodone/Acet 10/325 mg TABLET PO PRN ×3 (01:35→13:55)
[2016-09-10] MEDS: 0.9 % Sodium Chloride 1,000 ML IVC SCH ×2 (01:36→12:12)
[2016-09-10 07:38] LABS: Blood Urea Nitrogen 10 mg/dL (7-20); Calcium 8.6 mg/dL (8.6-10.8); Carbon Dioxide 22 mEq/L (19-29); Chloride 100 mEq/L (98-109); Glucose 78 mg/dL (70-99); Osmolality,Calculated 282 (280-300); Potassium 4.1 mEq/L (3.5-4.5); Sodium 137 mEq/L (136-145)
[2016-09-10] MEDS ORDERED: Cholecalciferol (D-3) 1,000 UNIT TABLET PO SCH (09:00)
[2016-09-10 09:22] LABS: BUN/Creatinine Ratio 17 (6-26); eGFR For African Americans > 60 (> 60); eGFR For Non-African Americans > 60 (> 60)
[2016-09-10 09:34] LABS: Basophils % 0.3 %; Eosinophils % 0.6 %; Hematocrit 28.6 % (35.3-44.9); Hemoglobin 9.7 g/dL (11.5-15.4); Immature Granulocytes % 1.1 % (0-4); Lymphocytes % 32.6 %; Mean Corpuscular HGB Conc 33.9 g/dL (31.6-35.5); Mean Corpuscular Hemoglobin 38.3 pg (28.0-33.3); Mean Platelet Volume 9.3 fL (9.4-12.4); Monocytes # 0.4 K/mcL (0.0-1.3); Neutrophils # 1.9 K/mcL (1.6-8.9); Platelet Count 175 K/mcL (140-400); Red Blood Count 2.53 M/mcL (3.82-4.97); Red Cell Distribution Width 13.4 % (11.5-14.5); Segmented Neutrophils % 54.4 %
[2016-09-10 09:45] LABS: Lymphocytes # 1.1 K/mcL (0.6-4.6)
[2016-09-10 10:42] LABS: Macrocytosis Present (Not Present)
--- NOTE | 2016-09-10 11:50 | Internal Med History&Physical ---
Date of Encounter: 09/10/16 Time of Encounter: 11:10 Assessment and Plan (1) Weakness generalized Current visit: No Status: Acute I discussed with her she needs to have further evaluation including possible neurosurgical referral. She wishes to be transferred to [facility]. (2) Neuroforaminal stenosis of lumbar spine Current visit: No Status: Chronic She likely needs repeat MRI studies with EMG/nerve conduction studies done. (3) Macrocytosis Current visit: No Status: Acute Chronic, continue folate supplementation. She has used alcohol extensively in the past. (4) Hyperuricemia Current visit: No Status: Acute We will restart allopurinol. She states this was not renewed at her last visit with her PCP. (5) Folate deficiency Current visit: No Status: Acute As above (6) Tachycardia Current visit: Yes Status: Acute Her heart rate was approximately 130/m in emergency room. This is now resolved. Internal Medicine - H&P: HPI Chief complaint: Fall, weakness, leg pain/numbness Admitted From: Home Plans for Post Hospital Care: Home History of present illness: Ms. Osullivan is a 60 year old female who came to emergency room stating she fallen twice in the past week and was fearful of falling again because of increased weakness. She sustained a skin tear to her left lower leg with the last fall. She was evaluated in emergency room and admitted to [facility] to further disposition could be obtained. She was hospitalized last at [facility] July 2016 with weakness. She had PT and OT evaluations ordered during the hospital stay. The OT evaluation was completed but the PT evaluation was not done prior to discharge. She was ordered outpatient PT and OT evaluations/therapy in her home. She received therapy until August 22 when she was discharged from outpatient therapy. She has continued to use her walker and wheelchair in the home but has become more weak and unstable with falls as per above. She states she has had progressive weakness over the past 2-3 years. She has had evaluation including LS spine MRI 03/27/2013 which showed multilevel degenerative changes with mild to moderate neural foraminal narrowing at various levels. An MRI of the cervical spine 01/06/2010 showed moderate to severe spondylosis at C5-6 and C6-7 with mild multilevel foraminal narrowing. There was no critical central spinal canal narrowing. She reports having EMG and nerve conduction studies done approximately 2 years ago without significant pathology seen. She has not seen a neurologist, neurosurgeon or catia designer. She has had multiple injections into her spine by pain management physicians in 2013/2014 with minimal improvement. She states she did not want to have back surgery so did not seek further medical help at that time. She has a diagnosis of scoliosis. She denies gout. She has had right rotator cuff injury with surgical repair several years ago. She has had left total knee replacement in 2010. Past Med Surg Social Fam HX - Past Medical History Medical history: asthma, hyperlipidemia, hypertension, other Psychiatric history: no psych history - Past Surgical History Surgical History: orthopedic, other - Social History Smoking Status: Current every day smoker Smokeless Tobacco Status: No Alcohol use: none Drug use: none - Family History Mother Name: angelica Living Status: Age at : 81 Cause of : [place] Hx Family Cardiac Disorders: Yes ([place]) Hx Family Respiratory Disorders: Yes (COPD) Hx Family Cancer: No Hx Family GI Disorders: No Hx Family Genitourinary Disorders: No Hx Family Endocrine Disorder: No Hx Family Musculoskeletal Disorders: No Hx Family Neuromuscular Disorders: No Hx Family Neurologic Disorders: No Hx Family HEENT Disorders: No Hx Family Autoimmune Disorders: No Hx Family Reproductive Disorders: No Hx Family Psychosocial Disorders: No Hx Family Medical Disorders: No Internal Medicine - H&P: Meds Albuterol Sulfate [Ventolin Hfa] 18 gm IH PRN PRN 07/13/16 [History] Cholecalciferol (Vitamin D3) [Vitamin D3] 2,000 unit PO DAILY 07/13/16 [History] Fluticasone/Salmeterol [Advair 500-50 Diskus] 1 each IH BID 07/13/16 [History] Gabapentin [Neurontin] 900 mg PO TID 07/13/16 [History] HYDROcodone/Acet 10/325 mg [[place] 10-325 mg] 1 tab PO Q6HR PRN 07/13/16 [History ] Ipratropium/Albuterol Neb [Duoneb] 3 ml IH BID PRN 07/13/16 [History] Metoprolol [Lopressor] 12.5 mg PO DAILY 09/09/16 [History] Triamterene/HCTZ 37.5/25mg [Dyazide] 1 each PO DAILY 09/09/16 [History] Allergies meloxicam [From Mobic] Allergy (Verified 07/13/16 06:16) Hives Oxycodone [From Percocet] Allergy (Verified 07/13/16 06:16) Hives All Systems PM: A 10-system review of systems was performed and is negative for pertinent findings except as documented above in the HPI. Review of systems: Review of systems from her July 2016 [facility] hospitalization were reviewed and revised as below. Gen.: Her weight has been stable at approximately 98 kg since July 2016. Cardiovascular: She has a history of hypertension and has had leg edema in the past without specific diagnosis of heart failure. Denies [place] DVT or pulmonary embolus. Respiratory: She has smoked since age 18 approximately 37 years up to 2 packs per day. She has a diagnosis of asthma but denies COPD and does not wear home oxygen. GI: She denies disorders of her liver gallbladder or exocrine pancreas : She has had hematuria in the past but has not had workup done. She denies other kidney or bladder disorders Neurologic: She denies large distribution strokes or seizures. She complains of numbness in her feet and legs. Endocrine: She has diabetes or known thyroid disease but does have hyperlipidemia with significantly elevated HDL levels. She admits to drinking bourbon on a daily basis in past years but states she has not drunk since discharge July 2016 Hematology/oncology: She denies blood disorders cancers or anemia Psychiatric: She denies anxiety depression or other mental health issues [place] skeletal: As per history of present illness - Constitutional Vitals: Temp Pulse Resp BP Pulse Ox 98.9 F 87 16 130/79 96 09/10/16 06:48 09/10/16 06:48 09/10/16 06:48 09/10/16 06:48 09/10/16 06:48 Exam: Gen.: She is a well-developed overweight female who is lying in bed in no severe distress HEENT: Head is atraumatic normocephalic. Eyes: EOMI. There is no scleral icterus. Mouth: Mucosa is moist. Neck: Supple and nontender. There is no thyromegaly or adenopathy noted. Heart: Regular without murmurs gallops or ectopics Lungs: No wheezes or crackles are heard. Abdomen: She has a large abdomen. It is nontender to palpation. Extremities: There is no cyanosis edema or clubbing noted. Dorsalis pedis and posterior tibial pulses are trace palpable bilaterally. Her feet are warm to touch. She has a skin tear of the left lower anterior lateral howard with a dressing in place. She has minimal DJD changes of her hands. Neurologic: Mental status: She is talkative and a good historian. Cranial nerves: Smile is symmetric. Forehead wrinkles bilaterally. Tongue protrudes midline. EOMI. Motor: There is no pronator drift. Cerebellar: Finger to nose is intact bilaterally. Skin: Warm and dry. She has various bruises on her skin. She has facial telangiectasias Internal Med - H&P Results - Labs CBC & Chem 7: 09/10/16 07:04 09/10/16 07:04 Labs: Short CBC 09/10/16 Range/Units 07:04 WBC 3.5 L (4.3-11.1) K/mcL Hgb 9.7 L D (11.5-15.4) g/dL Hct 28.6 L (35.3-44.9) % Plt Count 175 (140-400) K/mcL Neutrophils # 1.9 (1.6-8.9) K/mcL BMP 09/10/16 07:04 Sodium 137 Potassium 4.1 Chloride 100 Carbon Dioxide 22 BUN 10 Creatinine 0.60 Glucose 78 Calcium 8.6 Cardiac Enzymes 09/09/16 09/10/16 09/10/16 Range/Units 19:11 02:16 07:04 Troponin I 0.03 0.01 0.02 (0-0.03) ng/mL
[2016-09-10 12:09] VITALS: BP 145/79
[2016-09-10] MEDS: Budesonide/Formoterol 160/4.5 MDI IH SCH (12:34)
--- NOTE | 2016-09-10 14:08 | Discharge Summary ---
Date of Encounter: 09/10/16 Time of Encounter: 11:10 - Discharge Diagnosis (1) Weakness generalized Priority: Primary Status: Acute (2) Neuroforaminal stenosis of lumbar spine Priority: Secondary Status: Chronic (3) Macrocytosis Priority: Secondary Status: Chronic (4) Hyperuricemia Priority: Secondary Status: Chronic (5) Folate deficiency Priority: Secondary Status: Chronic (6) Tachycardia Priority: Secondary Status: Resolved - Discharge Medications Home Medications: Albuterol Sulfate [Ventolin Hfa] 18 gm IH PRN PRN 07/13/16 [History] Cholecalciferol (Vitamin D3) [Vitamin D3] 2,000 unit PO DAILY 07/13/16 [History] Fluticasone/Salmeterol [Advair 500-50 Diskus] 1 each IH BID 07/13/16 [History] Gabapentin [Neurontin] 900 mg PO TID 07/13/16 [History] HYDROcodone/Acet 10/325 mg [[place] 10-325 mg] 1 tab PO Q6HR PRN 07/13/16 [History ] Ipratropium/Albuterol Neb [Duoneb] 3 ml IH BID PRN 07/13/16 [History] Metoprolol [Lopressor] 12.5 mg PO DAILY 09/09/16 [History] Allopurinol [Zyloprim 100 MG] 200 mg PO DAILY tablet 09/10/16 [Rx] Allergies/Adverse Reactions: Allergies meloxicam [From Mobic] Allergy (Verified 07/13/16 06:16) Hives Oxycodone [From Percocet] Allergy (Verified 07/13/16 06:16) Hives Date of admission: 09/09/16 16:46 Primary care physician: Jose Elias Zazueta DO Consults: 09/09/16 18:00 Consult to Director Writing [CONS] Routine Reason for SW Consult: discharge - Patient Status Disposition: Transfer Other Condition: Good - Discharge Instructions Forms: ED Satisfaction Letter, Work/School Release - Diet and Activity Diet: advance to your usual diet Hospital course: Ms. Osullivan is a 60 year old female who came to emergency room stating she fallen twice in the past week and was fearful of falling again because of increased weakness. She sustained a skin tear to her left lower leg with the last fall. She was evaluated in emergency room and admitted to MedSurg floor to further disposition could be obtained. Initial orders were written by the emergency room physician. I saw her on September 10 and performed the history and physical. After performing the history and physical I told her I felt she needed referral for additional studies including MRI and/or EMG/nerve conduction studies. She was agreeable to go to [facility]. She was accepted in transfer the afternoon of September 10. - Time Spent with Patient Total time spent providing and/or coordinating discharge services: - Constitutional Vitals: Temp Pulse Resp BP Pulse Ox 98.0 F 90 16 145/79 97 09/10/16 12:07 09/10/16 12:07 09/10/16 12:07 09/10/16 12:07 09/10/16 12:07
--- NOTE | 2016-09-10 16:30 | Electrocardiograph Report ---
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
== END 2016-09-10 14:18 | disposition short-term general hospital (02) ==
LOC: INPPIK 12:43 → EMEROOPIK 12:43 → INPPIK 18:02
PROVIDERS: ADMIT Internal Medicine; ATTEND Internal Medicine

== ENCOUNTER 2016-11-30 15:52 | Observation (INO) ==
[2016-11-30] MEDS ORDERED: 0.9 % Sodium Chloride 1,000 ML IVC ONE (16:09)
[2016-11-30] MEDS ORDERED: Aspirin 81 MG TAB.CHEW PO ONE (16:09)
--- NOTE | 2016-11-30 16:10 | Emergency Department Note ---
Disposition Clinical Impression: Tachycardia, Decubitus skin ulcer Disposition: Admitted As Inpatient Condition: Fair Time of Disposition: 21:46 ([facility]) General Adult HPI - General Chief complaint: ED Chest Pain Stated complaint: elevated heartrate Time Seen by Provider: 11/30/16 16:05 Source: patient, EMS, other Mode of arrival: EMS Limitations: no limitations Nursing Notes Reviewed: Yes Vital Signs Reviewed: Yes - History of Present Illness HPI Narrative: Since been staying at a local nursing care has been having palpitations recently placed there as result of failed outpatient therapy after having recent back surgery patient's having weakness shortness of breath and intermittent chest pain feels lightheaded and dizzy denies any blurred vision double vision loss vision numbness tingling weakness denies any melena hematochezia or hematemesis patient does tell me that she has been having problems with her blood pressure fluctuated here frequently and not taking much medication as result of it Spoke with Dr. Mantilla and he is confirmed with the patient's been having tachycardia and he has been unable to manipulate it with the use of blood pressure management agents because of the concern for possibly of syncope because her blood pressures have dropped Onset (ago): day(s) Location: chest Radiation: non-radiation Pain Severity: moderate Pain Scale: 5 Quality: aching Improves with: nothing Worsens with: nothing Associated symptoms: Reports: loss of appetite, malaise, shortness of breath, weakness. Denies: confusion, chest pain, cough, diaphoresis, fever/chills, headaches, nausea/vomiting, seizure, syncope Treatments Prior to Arrival: none - Related Data Home Medications Medication Instructions Recorded Confirmed Albuterol Sulfate [Ventolin Hfa] 2 puff IH Q4H PRN 07/13/16 11/30/16 Gabapentin [Neurontin] 300 mg PO HS 07/13/16 11/30/16 Ipratropium/Albuterol Neb [Duoneb] 3 ml IH QID PRN 07/13/16 11/30/16 Cyclobenzaprine [Flexeril] 10 mg PO Q8H 10/22/16 11/30/16 Docusate [Colace] 100 mg PO BID 10/22/16 11/30/16 HYDROcodone/Acet 10/325 mg [Foster 2 tab PO Q4HR PRN 10/22/16 11/30/16 10-325 mg] Nystatin POWDER [Nystop] 1 appl TP DAILY PRN 10/22/16 11/30/16 Polyethylene Glycol 3350 [Gavilax] 17 gm PO DAILY 10/22/16 11/30/16 FentaNYL PATCH [Duragesic] 25 mcg TD Q72H 11/30/16 11/30/16 Fluticasone/Salmeterol [Advair 2 puff IH BID 11/30/16 11/30/16 500-50 Diskus] Folic Acid 1 mg PO DAILY 11/30/16 11/30/16 Multivitamin with Minerals 1 each PO DAILY 11/30/16 11/30/16 [Myvitalife] Zinc Sulfate 220 mg PO DAILY 11/30/16 11/30/16 Previous Rx's Medication Instructions Recorded Allopurinol [Zyloprim 100 MG] 200 mg PO DAILY tablet 09/10/16 HYDROcodone/Acet 10/325 mg [Foster 1 tab PO Q4HR PRN #20 tab 10/26/16 10-325 mg] Allergies Allergy/AdvReac Type Severity Reaction Status Date / Time meloxicam [From Mobic] Allergy Hives Verified 11/30/16 16:10 Oxycodone [From Percocet] Allergy Hives Verified 11/30/16 16:10 tramadol AdvReac See Verified 11/30/16 16:10 Comments All systems ED: reviewed and negative except as stated. Review of Systems: As Per HPI Constitutional: Reports: weakness. Denies: fever, chills Eyes: Denies: eye pain ENT ED: Denies: ear pain Cardiovascular: Reports: palpitations. Denies: chest pain Respiratory: Reports: dyspnea. Denies: cough Gastrointestinal: Denies: abdominal pain, nausea, vomiting Genitourinary: Denies: urgency, dysuria, frequency, hematuria Musculoskeletal: Denies: back pain, neck pain Integumentary: Denies: rash Neurological: Denies: headache Psychiatric: Denies: anxiety Endocrine: Reports: fatigue Hematological/Lymphatic: Denies: easy bleeding Allergic/Immunologic: Denies: facial swelling Past Medical History - Past Medical History Attestation: Yes The following information was validated with the patient. Source: patient, old records reviewed, nursing notes reviewed Medical history: Reports: asthma, COPD, hyperlipidemia, hypertension, other Surgical history: Reports: knee replacement, orthopedic, other, other (recent back surgery at [place]) Psychiatric history: Reports: no psych history EQUIP TECH history: Reports: no EQUIP TECH history - Social History Smoking Status: Current every day smoker Smokeless Tobacco Status: No Alcohol use: Reports: heavy Drug use: Reports: none Physical Exam - General Limitations: no limitations General appearance: alert, in no apparent distress - Head Head exam: atraumatic, normocephalic, normal inspection - Eye Eye exam: Present: normal appearance, PERRL, EOMI - ENT ENT exam: normal exam, normal oropharynx, mucous membranes moist, normal external ear exam - Chest Chest inspection: Present: normal inspection, symmetric chest wall rise - Respiratory Respiratory exam: Present: normal lung sounds bilaterally - Cardiovascular Cardiovascular exam: Present: tachycardia - Abdominal Exam Abdominal exam: Present: soft, Non-Tender, normal bowel sounds. Absent: mass, pulsatile mass - Expanded Upper Extremity Exam Shoulder exam: Present: normal inspection, full ROM Arm exam: Present: normal inspection, full ROM Elbow exam: Present: normal inspection, full ROM Forearm/Wrist exam: Present: normal inspection, full ROM Hand exam: Present: normal inspection, full ROM Vascular exam: Normal: capillary refill, radial pulse - Expanded Lower Extremity Exam Hip/Pelvis exam: Present: normal inspection, other (Illogical weakness in the lower extremities bilaterally loss of muscle tone noted breakdown of the tissue is also noted around the buttocks region) Upper leg exam: Present: normal inspection Knee exam: Present: normal inspection Lower leg exam: Present: normal inspection Ankle exam: Present: normal inspection Foot/toe exam: Present: normal inspection Neurovascular/Tendon exam: Present: normal capillary refill, normal fine/light touch Gait: observed and normal - Back Exam Back exam: Present: normal inspection, full ROM, tenderness, CVA tenderness (L) , muscle spasm, paraspinal tenderness - Neurological Exam Neurological exam: Present: alert, oriented X3, CN II-XII intact - Psychiatric Psychiatric exam: Present: normal affect, normal mood - Skin Skin exam: Present: warm, dry, intact, normal color Course Course Narrative: Patient seen and examined the patient was given IV fluids which did slow the heart redemonstrates a tiny bit as result he was 6 of Adenocard it appeared to be sinus tach with P waves being noted intermittently versus natural fib flutter patient was given Cardizem which slowed her heart rate down probably another 10 beats down to about 120 230 patient was feeling better patient was then transferred to [facility] for further management and hydration I did discuss case with Dr. Brunner extensively over the situation Vital Signs Temperature 98.6 F 11/30/16 15:56 Pulse Rate 153 11/30/16 15:56 Respiratory Rate 16 11/30/16 15:56 Blood Pressure 168/150 11/30/16 15:56 O2 Sat by Pulse Oximetry 92 11/30/16 15:56 Temperature 98.6 F 11/30/16 15:56 Pulse Rate 132 11/30/16 19:25 Respiratory Rate 18 11/30/16 21:03 Blood Pressure 144/74 11/30/16 21:03 O2 Sat by Pulse Oximetry 97 11/30/16 19:21 Oxygen Delivery Oxygen Delivery Nasal Cannula Medical Decision Making - MDM Narrative Medical decision making narrative: I consider medications thyroid infectious anemia and dehydration cardiac arrhythmias - Medical Records Medical records reviewed: Yes I reviewed the patient's medical records. - Lab Data Lab results reviewed: Yes I reviewed the patient's lab results. Result diagrams: 11/30/16 16:40 11/30/16 16:40 Lab Results 11/30/16 11/30/16 11/30/16 Range/Units 16:40 16:40 16:40 WBC 14.7 H D (4.3-11.1) K/mcL RBC 3.69 L (3.82-4.97) M/mcL Hgb 12.7 D (11.5-15.4) g/dL Hct 37.3 (35.3-44.9) % MCV 101.1 H (83.0-100.0) fL MCH 34.4 H (28.0-33.3) pg MCHC 34.0 (31.6-35.5) g/dL RDW 13.5 (11.5-14.5) % Plt Count 379 D (140-400) K/mcL MPV 9.3 L (9.4-12.4) fL Immature Gran % 0.7 (0-4) % Seg Neutrophils % 80.3 % Lymphocytes % 13.5 % Monocytes % 5.3 % Eosinophils % 0.1 % Basophils % 0.1 % Neutrophils # 11.8 H (1.6-8.9) K/mcL Lymphocytes # 2.0 (0.6-4.6) K/mcL Monocytes # 0.8 (0.0-1.3) K/mcL Eosinophils # 0.0 (0.0-0.6) K/mcL Basophils # 0.0 (0.0-0.2) K/mcL PT 12.7 H (9.4-12.1) Seconds INR 1.2 APTT 31.4 (26.0-36.0) Seconds D-Dimer (0-500) ng/mLFEU Sodium 138 (136-145) mEq/L Potassium 4.0 (3.5-4.5) mEq/L Chloride 101 (98-109) mEq/L Carbon Dioxide 21 (19-29) mEq/L BUN 15 (7-20) mg/dL Creatinine 0.57 (0.57-1.11) mg/dL Est GFR ( Amer) > 60 (> 60) Est GFR (Non-Af Amer) > 60 (> 60) BUN/Creatinine Ratio 26 (6-26) Glucose 117 H (70-99) mg/dL Calculated Osmolality 288 (280-300) Calcium 8.9 (8.6-10.8) mg/dL Troponin I (0-0.03) ng/mL TSH (0.350-4.840) mcIU/mL 11/30/16 11/30/16 11/30/16 Range/Units 16:40 16:40 16:40 WBC (4.3-11.1) K/mcL RBC (3.82-4.97) M/mcL Hgb (11.5-15.4) g/dL Hct (35.3-44.9) % MCV (83.0-100.0) fL MCH (28.0-33.3) pg MCHC (31.6-35.5) g/dL RDW (11.5-14.5) % Plt Count (140-400) K/mcL MPV (9.4-12.4) fL Immature Gran % (0-4) % Seg Neutrophils % % Lymphocytes % % Monocytes % % Eosinophils % % Basophils % % Neutrophils # (1.6-8.9) K/mcL Lymphocytes # (0.6-4.6) K/mcL Monocytes # (0.0-1.3) K/mcL Eosinophils # (0.0-0.6) K/mcL Basophils # (0.0-0.2) K/mcL PT (9.4-12.1) Seconds INR APTT (26.0-36.0) Seconds D-Dimer 724 H (0-500) ng/mLFEU Sodium (136-145) mEq/L Potassium (3.5-4.5) mEq/L Chloride (98-109) mEq/L Carbon Dioxide (19-29) mEq/L BUN (7-20) mg/dL Creatinine (0.57-1.11) mg/dL Est GFR ( Amer) (> 60) Est GFR (Non-Af Amer) (> 60) BUN/Creatinine Ratio (6-26) Glucose (70-99) mg/dL Calculated Osmolality (280-300) Calcium (8.6-10.8) mg/dL Troponin I 0.00 (0-0.03) ng/mL TSH 1.226 (0.350-4.840) mcIU/mL - Radiology Data Radiology results reviewed: Yes I reviewed the patient's radiology results. ITS Impressions Chest X-Ray 11/30/16 15:57 IMPRESSION: Bandlike atelectasis in the right perihilar lung. D/ / Kaveh Brice MD / Kaveh Brice MD Interpreting Provider: Kaveh Brice MD Chest CTA 11/30/16 19:54 IMPRESSION: No evidence of pulmonary embolism or acute pulmonary abnormality. Bibasilar dependent atelectatic changes. D/ / 11/30/2016 20:55:45 Telly Yeager MD / sridevi Interpreting Provider: Telly Yeager MD - EKG Data EKG #1 EKG attestation: Yes I reviewed and interpreted this EKG. EKG results narrative: Sinus tach rate 153 MN 126 QRS 81 QT 305 axis XCIII Critical Care Time Critical Care Time: Yes Total Critical Care Time: 35 Attestation: Critical care performed: 35 mins due to the fast heart rate and not feeling well and not improved at residential and etiology for the tachycardia and discussed with Dr. Mantilla that she seen the patient prior to coming to the ER Time is exclusive of separately billable procedures. Time includes: direct patient care, patient reassessment, coordination of patient care, interpretation of data (laboratory data, radiology data, and respiratory data), review of patient's medical records, medical consultation and documentation of patient care. Procedures included in critical care time: Procedures excluded from critical care time:
[2016-11-30 16:53] LABS: Basophils % 0.1 %; Eosinophils % 0.1 %; Hematocrit 37.3 % (35.3-44.9); Hemoglobin 12.7 g/dL (11.5-15.4); Immature Granulocytes % 0.7 % (0-4); Lymphocytes % 13.5 %; Mean Corpuscular Hemoglobin 34.4 pg (28.0-33.3); Mean Corpuscular Volume 101.1 fL (83.0-100.0); Mean Platelet Volume 9.3 fL (9.4-12.4); Monocytes # 0.8 K/mcL (0.0-1.3); Monocytes % 5.3 %; Neutrophils # 11.8 K/mcL (1.6-8.9); Platelet Count 379 K/mcL (140-400); Red Blood Count 3.69 M/mcL (3.82-4.97); Red Cell Distribution Width 13.5 % (11.5-14.5); Segmented Neutrophils % 80.3 %
[2016-11-30 16:58] LABS: INR 1.2; Prothrombin Time 12.7 Seconds (9.4-12.1)
[2016-11-30 17:00] LABS: Activated Partial Thrombo Time 31.4 Seconds (26.0-36.0)
[2016-11-30 17:06] LABS: BUN/Creatinine Ratio 26 (6-26); Blood Urea Nitrogen 15 mg/dL (7-20); Calcium 8.9 mg/dL (8.6-10.8); Carbon Dioxide 21 mEq/L (19-29); Chloride 101 mEq/L (98-109); Glucose 117 mg/dL (70-99); Osmolality,Calculated 288 (280-300); Sodium 138 mEq/L (136-145); eGFR For African Americans > 60 (> 60); eGFR For Non-African Americans > 60 (> 60)
[2016-11-30] MEDS ORDERED: *HR* Adenosine 6 MG/2 ML VIAL IVP ONE (17:09)
[2016-11-30] MEDS ORDERED: Ondansetron 4 MG/2 ML VIAL IVP ONE (17:48)
[2016-11-30] MEDS ORDERED: *HR* HYDROcodone/Acet 10/325 mg TABLET PO ONE (19:14)
[2016-11-30] MEDS ORDERED: Azithromycin 500 MG in D5% in Water 250 ML IVPB ONE (19:31)
[2016-11-30] MEDS ORDERED: Ipratropium/Albuterol Neb 3 ML IH PRN (21:33)
[2016-11-30] MEDS ORDERED: *HR* FentaNYL PATCH 25 MCG PATCH TD SCH (21:33)
[2016-11-30] MEDS ORDERED: Nystatin POWDER 30 GM BOTTLE TP PRN (21:33)
[2016-11-30] MEDS ORDERED: Naloxone 0.4 MG/ML INJ IVP PRN (21:33)
[2016-11-30] MEDS: 0.9 % Sodium Chloride 1,000 ML IVC SCH (22:33)
[2016-12-01] MEDS: *HR* HYDROcodone/Acet 10/325 mg TABLET PO PRN ×4 (06:15→20:59)
[2016-12-01] MEDS ORDERED: Pantoprazole 40 MG VIAL IVP SCH (06:30)
[2016-12-01 07:49] LABS: Basophils % 0.4 %; Eosinophils # 0.1 K/mcL (0.0-0.6); Hematocrit 30.8 % (35.3-44.9); Immature Granulocytes % 0.5 % (0-4); Lymphocytes % 24.4 %; Mean Corpuscular HGB Conc 32.5 g/dL (31.6-35.5); Mean Corpuscular Volume 104.8 fL (83.0-100.0); Mean Platelet Volume 8.7 fL (9.4-12.4); Monocytes # 0.8 K/mcL (0.0-1.3); Monocytes % 9.3 %; Neutrophils # 5.3 K/mcL (1.6-8.9); Platelet Count 229 K/mcL (140-400); Red Blood Count 2.94 M/mcL (3.82-4.97); Red Cell Distribution Width 13.6 % (11.5-14.5); Segmented Neutrophils % 64.4 %
[2016-12-01] MEDS: 0.9 % Sodium Chloride 1,000 ML IVC SCH (08:02)
[2016-12-01] MEDS ORDERED: *HR* Propranolol 1 MG/ML VIAL IVP ONE (08:13)
[2016-12-01] MEDS: Folic Acid 1 MG TABLET PO SCH (09:03)
[2016-12-01] MEDS: Multivit/Ca/Min/Fe/FA 1 TAB TABLET PO SCH (09:03)
[2016-12-01] MEDS: Zinc Sulfate 220 MG CAPSULE PO SCH (09:03)
[2016-12-01 09:53] LABS: BUN/Creatinine Ratio 24 (6-26); Blood Urea Nitrogen 12 mg/dL (7-20); Calcium 8.1 mg/dL (8.6-10.8); Carbon Dioxide 22 mEq/L (19-29); Chloride 103 mEq/L (98-109); Glucose 73 mg/dL (70-99); Osmolality,Calculated 278 (280-300); Potassium 3.6 mEq/L (3.5-4.5); Sodium 135 mEq/L (136-145); eGFR For African Americans > 60 (> 60); eGFR For Non-African Americans > 60 (> 60)
[2016-12-01] MEDS ORDERED: Budesonide/Formoterol 160/4.5 MDI IH SCH (10:00)
--- NOTE | 2016-12-01 15:17 | Internal Med History&Physical ---
Date of Encounter: 12/01/16 Time of Encounter: 14:45 Assessment and Plan (1) Tachycardia Current visit: No Status: Chronic She will be started on low dose scheduled beta dawson. Blood pressure will be monitored to avoid hypotension. Her echocardiogram October 2016 was reviewed. TSH was normal. (2) Chest pain Current visit: No Status: Resolved Doubt myocardial ischemia. Will give beta dawson as per above. Qualifiers: Chest pain type: other chest pain Qualified Code(s): R07.89 - Other chest pain; R07.8 - Other chest pain (3) Hyperuricemia Current visit: No Status: Chronic Continue allopurinol. We will check uric acid level in a.m. (4) Anemia Current visit: Yes Status: Acute Anemia testing November 2016 showed folate 3.7. Continue folate supplement. Qualifiers: Anemia type: unspecified type Qualified Code(s): D64.9 - Anemia, unspecified Internal Medicine - H&P: HPI Chief complaint: Tachycardia and chest pain Admitted From: Emergency Dept Plans for Post Hospital Care: Transfer Inp Rehab Fac History of present illness: Ms. Osullivan is a 61 year old female who was sent to emergency room from [facility] after she complained of discomfort in her chest and was found to have heart rate approximately 140/m. She was evaluated in emergency room and received Adenocard without significant change to her heart rate and rhythm. She was admitted to [facility] floor for ongoing care needs. She received IV Inderal this morning and states her chest discomfort and sensation of rapid heart rate have improved. She reports she has often had tachycardia over the past few months. Her cardiovascular history is significant for hypertension but no known heart failure ME DVT or pulmonary embolus. She had an echocardiogram 10/23/2016 during an [facility] stay which showed LVEF 55% with indeterminant LV diastolic function. There was no significant valvular dysfunction seen. She denies having a heart catheter or stress test. Past Med Surg Social Fam HX - Past Medical History Medical history: asthma, COPD, hyperlipidemia, hypertension, other Psychiatric history: no psych history - Past Surgical History Surgical History: knee replacement, orthopedic, other, other - Social History Smoking Status: Former smoker Packs per day: 2 packs Smokeless Tobacco Status: No Alcohol use: none Drug use: none - Family History Mother Living Status: Hx Family Cardiac Disorders: Yes (ME) Hx Family Respiratory Disorders: Yes (COPD) Hx Family Cancer: No Hx Family GI Disorders: No Hx Family Endocrine Disorder: No Hx Family Neuromuscular Disorders: No Hx Family Neurologic Disorders: No Hx Family HEENT Disorders: No Hx Family Autoimmune Disorders: No Father Hx Family Cardiac Disorders: Yes (CAD) Internal Medicine - H&P: Meds Albuterol Sulfate [Ventolin Hfa] 2 puff IH Q4H PRN 07/13/16 [History] Gabapentin [Neurontin] 300 mg PO HS 07/13/16 [History] Ipratropium/Albuterol Neb [Duoneb] 3 ml IH QID PRN 07/13/16 [History] Allopurinol [Zyloprim 100 MG] 200 mg PO DAILY tablet 09/10/16 [Rx] Cyclobenzaprine [Flexeril] 10 mg PO Q8H 10/22/16 [History] Docusate [Colace] 100 mg PO BID 10/22/16 [History] HYDROcodone/Acet 10/325 mg [[place] 10-325 mg] 2 tab PO Q4HR PRN 10/22/16 [History ] Nystatin POWDER [Nystop] 1 appl TP DAILY PRN 10/22/16 [History] Polyethylene Glycol 3350 [Gavilax] 17 gm PO DAILY 10/22/16 [History] HYDROcodone/Acet 10/325 mg [[place] 10-325 mg] 1 tab PO Q4HR PRN #20 tab 10/26/16 [Rx] FentaNYL PATCH [Duragesic] 25 mcg TD Q72H 11/30/16 [History] Fluticasone/Salmeterol [Advair 500-50 Diskus] 2 puff IH BID 11/30/16 [History] Folic Acid 1 mg PO DAILY 11/30/16 [History] Multivitamin with Minerals [Myvitalife] 1 each PO DAILY 11/30/16 [History] Zinc Sulfate 220 mg PO DAILY 11/30/16 [History] Magnesium Oxide 400 mg PO DAILY 12/01/16 [History] 3 Allergy/AdvReac Type Severity Reaction Status Date / Time meloxicam [From Mobic] Allergy Hives Verified 11/30/16 16:10 Oxycodone [From Percocet] Allergy Hives Verified 11/30/16 16:10 tramadol AdvReac See Verified 11/30/16 16:10 Comments All Systems PM: A 10-system review of systems was performed and is negative for pertinent findings except as documented above in the HPI. Review of systems: Gen.: Her weight has decreased from 93.395 kg 09/10/2016 to 81.647 kg on admission now. Cardiovascular: As per history of present illness Respiratory: She has smoked since age 18 approximately 37 years up to 2 packs per day. She states she has not smoked since her September 2016 [facility] hospitalization She has a diagnosis of asthma but denies COPD and does not wear supplemental oxygen. GI: She denies disorders of her liver gallbladder or exocrine pancreas : She has had hematuria in the past but has not had workup done. She denies other kidney or bladder disorders Neurologic: She denies large distribution strokes or seizures. She complains of numbness in her feet and legs that has lessened over the past few weeks. Endocrine: She denies diabetes or known thyroid disease. She had hyperlipidemia with significantly elevated HDL levels in the past but since she has been in the shelter with inability to consume alcohol repeat labs have shown low HDL of 25 and total/HDL ratio 5.7. She admits to drinking bourbon on a daily basis in past years but states she has not drunk since discharge July 2016 Hematology/oncology: She denies blood disorders or cancers. She has anemia with workup November 2016 showing elevated B12 1058 and low folate at 3.7. Psychiatric: She denies anxiety depression or other mental health issues Musk skeletal: She recently underwent lumbar spine surgery at [facility] September 2016. She reports progressive weakness over the past 2-3 years with impaired walking ability and requirement of a wheeled walker in the home. She has diagnosis of scoliosis. She denies gout. She has had right rotator cuff injury repair surgery and left total knee replacement 2010. - Constitutional Vitals: Temp Pulse Resp BP Pulse Ox 98.2 F 118 16 101/65 93 12/01/16 11:13 12/01/16 11:13 12/01/16 11:13 12/01/16 11:13 12/01/16 11:13 Exam: Gen.: She is a well-developed overweight female lying in bed who appears in no acute distress HEENT: Head is atraumatic and normocephalic. Eyes: EOMI. There is no scleral icterus. Mouth: Mucosa is moist. Neck: Supple and nontender. There is no thyromegaly or adenopathy noted. Heart: Regular without murmurs gallops or ectopics. Heart rate is approximately 112/m Lungs: No wheezes or crackles heard. Abdomen: Soft and nontender. No masses or guarding noted. Extremities: There is no cyanosis edema or clubbing noted. Dorsalis pedis and posttibial pulses are 1-2 over 2 bilaterally. Neurologic: Mental status: She is talkative and seems to be a fair to good historian. Cranial nerves: Smile is symmetric. Forehead wrinkles bilaterally. Tongue protrudes midline. EOMI. Motor: She has difficulty pronating the right arm because of right shoulder past injury. Cerebellar: Finger to nose intact bilaterally. Skin: Warm and dry. She has a few scattered ecchymoses on her arms and legs. She has an Allevyn covering a pressure sore in her coccyx area. I did not remove it. Internal Med - H&P Results - Labs CBC & Chem 7: 12/01/16 07:40 12/01/16 07:40 Labs: Short CBC 12/01/16 Range/Units 07:40 WBC 8.3 (4.3-11.1) K/mcL Hgb 10.0 L D (11.5-15.4) g/dL Hct 30.8 L (35.3-44.9) % Plt Count 229 (140-400) K/mcL Neutrophils # 5.3 (1.6-8.9) K/mcL BMP 12/01/16 07:40 Sodium 135 L Potassium 3.6 Chloride 103 Carbon Dioxide 22 BUN 12 Creatinine 0.51 L Glucose 73 Calcium 8.1 L Cardiac Enzymes 12/01/16 Range/Units 07:40 Troponin I 0.00 (0-0.03) ng/mL
[2016-12-01] MEDS: Magnesium Oxide 400 MG TABLET PO SCH (20:41)
[2016-12-01] MEDS ORDERED: Gabapentin 300 MG CAPSULE PO SCH (21:00)
[2016-12-02 06:08] LABS: Basophils % 0.5 %; Eosinophils # 0.2 K/mcL (0.0-0.6); Eosinophils % 3.5 %; Hematocrit 29.5 % (35.3-44.9); Hemoglobin 9.6 g/dL (11.5-15.4); Immature Granulocytes % 0.6 % (0-4); Lymphocytes # 2.3 K/mcL (0.6-4.6); Lymphocytes % 35.9 %; Mean Corpuscular HGB Conc 32.5 g/dL (31.6-35.5); Mean Corpuscular Hemoglobin 34.4 pg (28.0-33.3); Mean Corpuscular Volume 105.7 fL (83.0-100.0); Mean Platelet Volume 9.1 fL (9.4-12.4); Monocytes # 0.6 K/mcL (0.0-1.3); Monocytes % 10.2 %; Neutrophils # 3.1 K/mcL (1.6-8.9); Platelet Count 236 K/mcL (140-400); Red Blood Count 2.79 M/mcL (3.82-4.97); Red Cell Distribution Width 13.3 % (11.5-14.5); Segmented Neutrophils % 49.3 %
[2016-12-02 06:24] LABS: Alanine Aminotransferase 7 Units/L (0-55); Albumin/Globulin Ratio 0.4 (1.1-2.2); Alkaline Phosphatase 118 Units/L (38-126); Aspartate Amino Transferase 24 Units/L (5-34); BUN/Creatinine Ratio 21 (6-26); Bilirubin,Total 0.3 mg/dL (0.2-1.2); Blood Urea Nitrogen 10 mg/dL (7-20); Calcium 8.1 mg/dL (8.6-10.8); Carbon Dioxide 24 mEq/L (19-29); Chloride 105 mEq/L (98-109); Globulin 3.2 g/dL (2.4-3.5); Glucose 66 mg/dL (70-99); Osmolality,Calculated 281 (280-300); Phosphorous 2.7 mg/dL (2.3-4.7); Potassium 3.4 mEq/L (3.5-4.5); Sodium 137 mEq/L (136-145); Total Protein 4.4 g/dL (6.0-8.3); Uric Acid 3.7 mg/dL (2.6-6.0); eGFR For African Americans > 60 (> 60); eGFR For Non-African Americans > 60 (> 60)
[2016-12-02 06:26] LABS: Albumin 1.2 g/dL (3.5-5.0)
[2016-12-02 06:55] VITALS: BP 99/52
[2016-12-02] MEDS: *HR* HYDROcodone/Acet 10/325 mg TABLET PO PRN ×2 (06:59→10:29)
[2016-12-02] MEDS: Zinc Sulfate 220 MG CAPSULE PO SCH (08:37)
[2016-12-02] MEDS: Magnesium Oxide 400 MG TABLET PO SCH (08:37)
[2016-12-02] MEDS: Multivit/Ca/Min/Fe/FA 1 TAB TABLET PO SCH (08:37)
[2016-12-02] MEDS: Folic Acid 1 MG TABLET PO SCH (08:38)
--- NOTE | 2016-12-02 09:47 | Discharge Summary ---
Date of Encounter: 12/02/16 Time of Encounter: 09:35 - Discharge Diagnosis (1) Tachycardia Priority: Primary Status: Resolved (2) Chest pain Priority: Secondary Status: Resolved Qualifiers: Chest pain type: other chest pain Qualified Code(s): R07.89 - Other chest pain; R07.8 - Other chest pain (3) Hyperuricemia Priority: Secondary Status: Chronic (4) Anemia Priority: Secondary Status: Acute Qualifiers: Anemia type: unspecified type Qualified Code(s): D64.9 - Anemia, unspecified - Discharge Medications Prescriptions: FentaNYL PATCH [Duragesic] 12 mcg TD Q72H #10 patch.td72 Potassium Chloride [Klor-Con 10] 10 meq PO DAILY 365 Days Home Medications: Albuterol Sulfate [Ventolin Hfa] 2 puff IH Q4H PRN 07/13/16 [History] Gabapentin [Neurontin] 300 mg PO HS 07/13/16 [History] Ipratropium/Albuterol Neb [Duoneb] 3 ml IH QID PRN 07/13/16 [History] Docusate [Colace] 100 mg PO BID 10/22/16 [History] Nystatin POWDER [Nystop] 1 appl TP DAILY PRN 10/22/16 [History] Polyethylene Glycol 3350 [Gavilax] 17 gm PO DAILY 10/22/16 [History] HYDROcodone/Acet 10/325 mg [Dixon 10-325 mg] 1 tab PO Q4HR PRN #20 tab 10/26/16 [Rx] Fluticasone/Salmeterol [Advair 500-50 Diskus] 2 puff IH BID 11/30/16 [History] Folic Acid 1 mg PO DAILY 11/30/16 [History] Multivitamin with Minerals [Myvitalife] 1 each PO DAILY 11/30/16 [History] FentaNYL PATCH [Duragesic] 12 mcg TD Q72H #10 patch.td72 12/02/16 [Rx] Magnesium Oxide [Mag-Ox] 400 mg PO BID tab 12/02/16 [Rx] Metoprolol [Lopressor] 12.5 mg PO BID tab 12/02/16 [Rx] Potassium Chloride [Klor-Con 10] 10 meq PO DAILY 365 Days 12/02/16 [Rx] Allergies/Adverse Reactions: 3 Allergy/AdvReac Type Severity Reaction Status Date / Time meloxicam [From Mobic] Allergy Hives Verified 11/30/16 16:10 Oxycodone [From Percocet] Allergy Hives Verified 11/30/16 16:10 tramadol AdvReac See Verified 11/30/16 16:10 Comments Date of admission: 11/30/16 20:55 Primary care physician: Cody Mantilla MD - Patient Status Disposition: Transfer SNF Condition: Fair Overall status at discharge: patient is progressing back to baseline - Discharge Instructions Follow Up With: Cody Mantilla MD [Primary Care Provider] - 1 week - Diet and Activity Activity: as per physical therapy Diet: advance to your usual diet Hospital course: Ms. Osullivan is a 61 year old female who was sent to emergency room from [facility] after she complained of discomfort in her chest and was found to have heart rate approximately 140/m. She was evaluated in emergency room and received Adenocard without significant change to her heart rate and rhythm. She was admitted to [facility] for ongoing care needs. Initial orders were written by the emergency room physician. I saw her on December 01 and performed the history and physical. She was started on low-dose metoprolol. Her heart rate gradually improved and remained less than 100 for several hours prior to discharge. Her blood pressure remained stable but borderline low. She will continue low-dose metoprolol upon discharge. She had resolution of her chest pain with slowing of her heart rate. Leukocytosis and left shift resolved on follow-up lab work. No antibiotics were given. Potassium level decreased to 3.4 on the day of discharge and she will be started on supplemental potassium. Her magnesium level returned low at 1.4 so magnesium oxide was increased to 400 mg twice a day. Her narcotic medication dose will be gradually decreased with reduction of fentanyl and Dixon doses at discharge. Her appetite was poor and she was occasionally noted to be groggy. Her muscle relaxer and zinc supplement will be discontinued. There were no new problems and on December 02 she was stable for discharge back to [facility] or she will follow with me. - Time Spent with Patient Total time spent providing and/or coordinating discharge services: - Constitutional Vitals: Temp Pulse Resp BP Pulse Ox 98.3 F 88 18 99/52 93 12/02/16 06:50 12/02/16 06:50 12/02/16 06:50 12/02/16 06:50 12/02/16 06:50
--- NOTE | 2016-12-03 13:53 | Electrocardiograph Report ---
[address] [address] Test Date: 2016-11-30 Pat Name: Mikaela Osullivan Department: [address] Room: [facility] Gender: F Web Coordinator: [place] : 1955 Requested By: Keely Krishnan Order Number: [id number] Reading MD: Barbara Louis Measurements Intervals [place] Rate: 153 P: 76 NM: 126 QRS: 93 QRSD: 81 T: 72 QT: 305 QTc: 391 Interpretive Statements SINUS TACHYCARDIA, POSSIBLE ATRIAL FLUTTER BORDERLINE RIGHT AXIS DEVIATION LOW QRS VOLTAGE IN PRECORDIAL LEADS MINIMAL ST DEPRESSION ABNORMAL RHYTHM ECG Electronically Signed On 12-03-2016 13:51:47 EDT by Barbara Louis
== END 2016-12-02 10:35 ==
LOC: INPPIK 15:52 → EMEROOPIK 15:52 → INPPIK 21:47
PROVIDERS: ADMIT Internal Medicine; ATTEND Internal Medicine